=== PATIENT | female | born 1995 | race Caucasian/White ===

== ENCOUNTER 2023-05-17 08:41 | Emergency (ER) | payer OTHER ==
[~2023-05-17] VITALS: Ht 157.4 cm; Wt 61.2 kg
[2023-05-17] MEDS ORDERED: SPRINTEC 35 MCG1 TA1 PO (08:53)
[2023-05-17 09:31] LABS: BASO # 0.1 10*3/uL (0.0-0.1); BASO % 1.1 % (0.0-1.0); EOS % 0.2 % (1.0-4.0); HEMATOCRIT 40.3 % (37.0-47.0); LYMPH # 1.1 10*3/uL (1.3-4.4); LYMPH % 19.8 % (27.0-41.0); MEAN CELL VOLUME 84.8 fl (81.0-99.0); MEAN CORPUSCULAR HGB 28.6 pg (27.0-31.0); MEAN CORPUSCULAR HGB CONC 33.7 g/dl (33.0-37.0); MEAN PLATELET VOLUME 9.7 fl (9.6-12.3); MONO # 0.5 10*3/uL (0.1-1.0); MONO % 9.1 % (3.0-9.0); NEUT # 3.9 10*3/uL (2.3-7.9); NEUT % 69.6 % (47.0-73.0); PLATELET COUNT AUTOMATED 193 10*3/uL (130-400); RED BLOOD COUNT 4.75 10*6/uL (4.10-5.10); RED CELL DISTRI WIDTH 12.3 % (0-14.5); WHITE BLOOD COUNT 5.6 10*3/uL (4.8-10.8)
[2023-05-17 09:44] LABS: ACT PARTIAL THROMBO TIME 30.3 SECONDS (20.0-32.1)
[2023-05-17 09:55] LABS: ALKALINE PHOSPHATASE 137 U/L (46-116); BUN 10 mg/dl (9-23); CHLORIDE 101 mmol/L (98-107); LIPASE 48 U/L (12-53); POTASSIUM 3.6 mmol/L (3.4-5.1); SGPT/ALT 37 U/L (10-49); TOTAL PROTEIN 8.1 gm/dL (6.0-8.0)
[2023-05-17 10:12] LABS: BETA-HCG, QUANT < 3.0 mIU/mL (3-10)
== END 2023-05-17 12:15 | disposition home or self-care (01) ==
LOC: ED 08:41
PROVIDERS: Emergency Medicine
DX: B34.9 Viral infection, unspecified (principal); Z20.822 Contact with and (suspected) exposure to COVID-19; Z79.899 Other long term (current) drug therapy